=== PATIENT | female | born 1995 | race Caucasian/White ===

== ENCOUNTER 2017-03-01 13:26 | Emergency (ER) | payer BC ==
--- NOTE | 2017-03-01 14:05 | ER Document Report ---
ED Medical Screen (RME) - General Stated Complaint: VAGINAL BLEEDING Time Seen by Provider: 03/01/17 14:03 Notes: vag bleeding for one day, LMP: 01/25, pelvic cramping
[2017-03-01 15:00] LABS: ABSOLUTE EOSINOPHILS # (AUTO) 0.2 10^3/uL (0.0-0.6); ABSOLUTE LYMPHOCYTES (AUTO) 1.8 10^3/uL (0.5-4.7); ABSOLUTE MONOCYTES (AUTO) 0.5 10^3/uL (0.1-1.4); ABSOLUTE NEUT (AUTO) 6.6 10^3/uL (1.7-8.2); BASOPHILS % (AUTO) 0.3 % (0-2); EOSINOPHILS % (AUTO) 1.7 % (0-6); HEMATOCRIT 42.7 % (36.0-47.0); HEMOGLOBIN 14.6 g/dL (12.0-15.5); HGB HCT DIFFERENCE 1.1; MEAN CORPUSCULAR HEMOGLOBIN 32.4 pg (27.0-33.4); MEAN CORPUSCULAR HGB CONC 34.2 g/dL (32.0-36.0); MEAN CORPUSCULAR VOLUME 95 fl (80-97); MONOCYTES % (AUTO) 5.9 % (3-13); RED BLOOD COUNT 4.51 10^6/uL (3.72-5.28); RED CELL DISTRIBUTION WIDTH 12.7 % (11.5-14.0); SEGMENTED NEUTROPHILS % (AUTO) 72.1 % (42-78); WHITE BLOOD COUNT 9.2 10^3/uL (4.0-10.5)
[2017-03-01 15:17] LABS: ANION GAP 10 (5-19); BLOOD UREA NITROGEN 8 mg/dL (7-20); CALCIUM 9.6 mg/dL (8.4-10.2); CARBON DIOXIDE 25 mmol/L (22-30); CHLORIDE 107 mmol/L (98-107); CREATININE RESULT 0.66 mg/dL (0.52-1.25); GLUCOSE 91 mg/dL (75-110); POTASSIUM 4.2 mmol/L (3.6-5.0); SODIUM 142.2 mmol/L (137-145)
[2017-03-01 16:15] VITALS: BP 114/80
[2017-03-01] MEDS ORDERED: IBUPROFEN 800 MG TABLET PO ONE (16:18)
[2017-03-01 16:20] LABS: APPEARANCE,URINE SLIGHTLY-CLOUDY; BILIRUBIN,URINE NEGATIVE (NEGATIVE); GLUCOSE, URINE NEGATIVE (NEGATIVE); KETONES,URINE NEGATIVE (NEGATIVE); LEUKOCYTE ESTERASE,URINE NEGATIVE (NEGATIVE); NITRITE,URINE NEGATIVE (NEGATIVE); PROTEIN,URINE NEGATIVE (NEGATIVE); URINE SPECIFIC GRAVITY 1.011; UROBILINOGEN,URINE NEGATIVE mg/dL (<2.0)
--- NOTE | 2017-03-01 16:22 | ER Document Report ---
ED GI/ - General Chief Complaint: Vaginal Bleeding Stated Complaint: VAGINAL BLEEDING Time Seen by Provider: 03/01/17 14:03 Mode of Arrival: Ambulatory Information source: Patient Notes: pt is a 22 year old female who presents to the ER today for lower abdominal pain and cramping since she started her period last night. Pt has PCOS and states she doesn't usually cramp with her periods, so this is abnormal for her. She states she went through 4 tampons in 1 hour last night. Past Medical History - General Information source: Patient - Social History Smoking Status: Never Smoker Family History: Reviewed & Not Pertinent Review of Systems - Review of Systems Constitutional: No symptoms reported EENT: No symptoms reported Cardiovascular: No symptoms reported Respiratory: No symptoms reported Gastrointestinal: No symptoms reported Genitourinary: No symptoms reported Female Genitourinary: See HPI Musculoskeletal: No symptoms reported Skin: No symptoms reported Hematologic/Lymphatic: No symptoms reported Neurological/Psychological: No symptoms reported Physical Exam - Vital signs Vitals: Temp Pulse BP Pulse Ox 98.8 F 93 94/60 L 96 03/01/17 14:04 03/01/17 14:04 03/01/17 14:04 03/01/17 14:04 - Notes Notes: PHYSICAL EXAMINATION: GENERAL: Well-appearing and in no acute distress. HEAD: Atraumatic, normocephalic. EYES: Pupils equal round and reactive to light, extraocular movements intact, sclera anicteric, conjunctiva are normal. NECK: Normal range of motion, supple without lymphadenopathy LUNGS: CTAB and equal. No wheezes rales or rhonchi. HEART: Regular rate and rhythm without murmurs ABDOMEN: Soft, mild suprapubic tenderness. No guarding, no rebound BACK: no vertebral tenderness, normal ROM GI/: no CVA tenderness EXTREMITIES: Normal range of motion, no pitting edema. No cyanosis. NEUROLOGICAL: Cranial nerves grossly intact. Normal sensory/motor exams. PSYCH: Normal mood, normal affect. SKIN: Warm, Dry, normal turgor, no rashes or lesions noted Course - Re-evaluation Re-evalutation: 03/01/17 16:20 Lab work is unremarkable today including a normal hemoglobin negative test. - Vital Signs Vital signs: Temp Pulse Resp BP Pulse Ox 98.6 F 64 20 114/80 98 03/01/17 16:14 03/01/17 16:14 03/01/17 16:14 03/01/17 16:14 03/01/17 16:14 - Laboratory Result Diagrams: 03/01/17 14:43 03/01/17 14:43 Laboratory results interpreted by me: 03/01/17 14:43 Urine Blood MODERATE H Discharge - Discharge Clinical Impression: heavy menstrual cycle Condition: Stable Disposition: HOME, SELF-CARE Additional Instructions: Return immediately for any new or worsening symptoms. Follow up with primary care provider, call tomorrow to make followup appointment. Prescriptions: Ibuprofen [Motrin 800 mg Tablet] 800 mg PO Q8H PRN #30 tab PRN Reason: Forms: Return to Work
== END 2017-03-01 16:53 | disposition home or self-care (01) ==
LOC: ER 13:26
DX: N92.0 Excessive and frequent menstruation with regular cycle (principal); E28.2 Polycystic ovarian syndrome; R10.30 Lower abdominal pain, unspecified
CPT/HCPCS: 36415; 80048; 81001; 84702; 85025; 99284

== ENCOUNTER 2017-06-17 13:07 | Emergency (ER) | payer SELFPAY ==
--- NOTE | 2017-06-17 14:57 | ER Document Report ---
ED Hand/Wrist Injury - General Chief Complaint: Hand Swelling Stated Complaint: SWOLLEN HANDS Time Seen by Provider: 06/17/17 14:50 Mode of Arrival: Ambulatory Information source: Patient Notes: Patient is a 24-year-old female who presents to the ER today for swelling and redness to her first and second fingers on her left hand that occurred during the night. Patient reports no injury, denies being bitten by anything that she knows of. She denies any numbness or tingling, pain. She states it is very itchy. Patient also complains of shortness of breath 1 week with cough, runny nose, sinus pressure. Patient states she has had a fever two times of 101F. She admits to smoking and also history of asthma. She admits to wheezing. She does have an inhaler at home but has not used it. TRAVEL OUTSIDE OF THE [place] IN LAST 30 DAYS: No - Related Data Allergies/Adverse Reactions: adhesive tape Allergy (Verified 06/17/17 13:24) Past Medical History - General Information source: Patient - Social History Smoking Status: Current Every Day Smoker Family History: Reviewed & Not Pertinent Renal/ Medical History: Denies: Hx Peritoneal Dialysis Surgical Hx: Negative Review of Systems - Review of Systems Constitutional: See HPI EENT: See HPI Cardiovascular: No symptoms reported Respiratory: See HPI Gastrointestinal: No symptoms reported Genitourinary: No symptoms reported Female Genitourinary: No symptoms reported Musculoskeletal: No symptoms reported Skin: No symptoms reported Hematologic/Lymphatic: No symptoms reported Neurological/Psychological: No symptoms reported Physical Exam - Vital signs Vitals: Temp Pulse Resp BP Pulse Ox 98.4 F 83 18 131/71 H 96 06/17/17 13:23 06/17/17 13:23 06/17/17 13:23 06/17/17 13:23 06/17/17 13:23 - Notes Notes: PHYSICAL EXAMINATION: GENERAL: Mildly ill-appearing, but in no acute distress. HEAD: Atraumatic, normocephalic. EYES: Pupils equal round and reactive to light, extraocular movements intact, sclera anicteric, conjunctiva are normal. ENT: ear canals without erythema or foreign body, TMs pearly waters with good bony landmarks, nares with mucoid discharge oropharynx clear without exudates. Moist mucous membranes. NECK: Normal range of motion, supple without lymphadenopathy LUNGS: Mild expiratory wheezes to bilateral upper lungs, no rales or rhonchi. HEART: Regular rate and rhythm without murmurs ABDOMEN: Soft, no tenderness. No guarding, no rebound BACK: no vertebral tenderness, normal ROM GI/: no CVA tenderness EXTREMITIES: Normal range of motion, no pitting edema. No cyanosis. NEUROLOGICAL: Cranial nerves grossly intact. Normal sensory/motor exams. PSYCH: Normal mood, normal affect. SKIN: Warm, Dry, normal turgor, mild edema, erythema to the dorsal surface of the first and second digits on the right hand, excoriation present, small papule overlying each 1 consistent with insect bite Course - Vital Signs Vital signs: Temp Pulse Resp BP Pulse Ox 98.4 F 83 18 131/71 H 96 06/17/17 13:23 06/17/17 13:23 06/17/17 13:23 06/17/17 13:23 06/17/17 13:23 Discharge - Discharge Clinical Impression: Bronchitis, Swelling of finger, left Sinusitis Qualifiers: Sinusitis location: unspecified location Chronicity: acute Recurrence: non- recurrent Qualified Code(s): J01.90 - Acute sinusitis, unspecified Condition: Stable Disposition: HOME, SELF-CARE Instructions: Sinusitis ([facility]), Bronchitis With Bronchospasm (Wheezing) ([facility]) Additional Instructions: Return immediately for any new or worsening symptoms. Follow up with primary care provider, call tomorrow to make followup appointment. Prescriptions: Amox Tr/Potassium Clavulanate [Augmentin 875-125 Tablet] 1 tab PO BID 10 Days tablet Prednisone 10 mg PO ASDIR PRN #1 tab.ds.pk PRN Reason: Forms: Return to School
[2017-06-17] MEDS ORDERED: ALBUTEROL SULFATE 0.083% NEB 2.5 MG/3 ML AMPUL NEB ONE (15:00)
[2017-06-17 15:26] VITALS: BP 130/70
== END 2017-06-17 15:26 | disposition home or self-care (01) ==
LOC: ER 13:07
DX: J01.90 Acute sinusitis, unspecified (principal); J40 Bronchitis, not specified as acute or chronic; M79.89 Other specified soft tissue disorders; R06.02 Shortness of breath; R05 Cough; R09.89 Other specified symptoms and signs involving the circulatory and respiratory systems; R50.9 Fever, unspecified; F17.200 Nicotine dependence, unspecified, uncomplicated
CPT/HCPCS: 94640; 99283